=== PATIENT | female | born 1950 | race Caucasian/White ===

== ENCOUNTER → 2017-01-02 | Outpatient (CLI) | payer OTHER ==
[~2017-01-02] MED LIST: ASCA500 PO; ASPEC81 PO; CALC1TAB9 PO; CARV12.5 PO; CHOL20007 PO; CYAN500T13 PO; ESCI1TAB10 PO; FRRS300 PO; LORA-741 PO; MULTTAB58 PO; PANT1TAB48 PO; TRIA75TA53 PO
--- NOTE | 2017-01-02 15:41 | MAMMOGRAPHY REPORT ---
BILATERAL DIGITAL SCREENING MAMMOGRAM WITH CAD: 01/02/2017 TECHNIQUE: Current study was also evaluated with a Computer Aided Detection (CAD) system. Bilatera l CC and MLO views were obtained. COMPARISON: Comparison is made to exams dated: 01/01/2016 mammogram, 12/29/2014 mammogram, 12/21/2013 mammogram, 11/06/2010 mammogram - [facility], 02/09/2009, and 11/27/2006. BREAST COMPOSITION: There are scattered areas of fibroglandular density in both breasts. FINDINGS: No suspicious masses, calcifications, or areas of architectural distortion are noted in e ither breast. There has been no significant interval change compared to prior exams. Bilateral scat tered benign-appearing calcifications are not significantly changed. Bilateral asymmetries are stab le. IMPRESSION: ACR BI-RADS CATEGORY 2: BENIGN There is no mammographic evidence of malignancy. A 1 year screening mammogram is recommended. The p atient will receive written notification of the results. Approximately 10% of breast cancers are not detected with mammography. A negative mammographic repor t should not delay biopsy if a clinically suggestive mass is present. Aline Blandon M.D. ah/:01/02/2017 15:19:36 Parachute Harness Rigger: Komal DO(Ashlie)(M), [facility] letter sent: Normal 1/2 BI-RADS Code: ACR BI-RADS Category 2: Benign
== END | disposition home or self-care (01) ==
LOC: C.MAMM 09:57
PROVIDERS: ATTEND Internal Medicine
DX: Z12.31 Encounter for screening mammogram for malignant neoplasm of breast (principal)

== ENCOUNTER → 2017-11-27 | Day surgery (SDC) | payer OTHER ==
[2017-11-26 08:38] VITALS: BMI 45.0
[~2017-11-27] VITALS: Ht 172.7 cm; Wt 134.1 kg
[~2017-11-27] MED LIST changes: +ASPCH81X PO; -ASPEC81 PO; -CHOL20007 PO; +FENTANYL CITRATE INJ 50 MCG/1 ML 2 ML VIAL ONE; -FRRS300 PO; +LIDOCAINE HCL 2% 2 ML VIAL (20MG/ML) ONE; +MAGN400T6 PO; +PANT1TAB3 PO; -PANT1TAB48 PO; +PROPOFOL IV EMULSION 10 MG/ML 20 ML VIAL IV ONE; +SODIUM CHLORIDE 0.9% 500ML 500 ML IV ONE
[2017-11-27 09:29] VITALS: Ht 172.7 cm; Wt 134.1 kg
--- NOTE | 2017-11-27 10:00 | Endo History and Physical ---
History & Physical Date of Service: Nov 27, 2017. Chief Complaint: GERD Referring Physician: DR. PRICE History of Present Illness patient with heartburn symptoms Past Surgical History Hx Cardiac Surgery: Yes (HEART CATH, NO STENT) Hx Internal Defibrillator: No Hx Pacemaker: No Hx Abdominal Surgery: Yes (GASTRIC BYPASS, HERNIA REPAIR X6, OVARIAN CYST REMOVAL, COLON RESECTION) Hx of Implantable Prosthesis: No Hx Post-Op Nausea and Vomiting: No Hx Cancer Surgery: No Hx Thoracic Surgery: No Hx Orthopedic: Yes (L/R TKA, RT TRIGGER FINGER) Hx Urinary Tract Surgery: No Family History None Social History Smoking Status: Never Smoker Hx Substance Use: No Hx Alcohol Use: No Allergies Coded Allergies: RANDA Inhibitors (Verified Adverse Reaction, Mild, COUGH ONLY, 11/27/17) Adhesives (Verified Adverse Reaction, Mild, ERYTHEMA, 11/27/17) Codeine (Verified Adverse Reaction, Mild, INCREASED SEDATION, 11/27/17) Current Medications Reported Home Medications Medications Dose Route/Sig Max Daily Dose Days Date Category Mag-Ox (Magnesium Oxide) 400 Mg Tab 400 Mg PO Q2D 11/26/17 Reported Aspirin Chewable (Aspirin) 81 Mg Chew 81 Mg PO HS 11/26/17 Reported Vitamin C (Ascorbic Acid) 500 Mg Tab 1 Tab PO QAM 07/25/16 Reported Citracal + D3 Maximum (Calcium Citrate-Vitamin D) 1 Tab Tab 2 Tabs PO BID 04/07/15 Reported Lexapro (Escitalopram Oxalate) 20 Mg Tab 20 Mg PO QAM 04/07/15 Reported Protonix (Pantoprazole) 40 Mg Tab 40 Mg PO BID 04/24/13 Reported Coreg (Carvedilol) 12.5 Mg Tab 12.5 Mg PO BID 04/07/12 Reported Ativan (Lorazepam) 0.5 Mg Tab 0.5 Mg PO TID PRN 03/06/12 Reported Multivitamin (Multiple Vitamin) 1 Tab Tab 1 Tab PO QAM 03/06/12 Reported Vitamin B12 500MCG (Cyanocobalamin) 500 Mcg Tab 500 Mcg PO QAM 03/06/12 Reported Maxzide 75MG/50MG (Triamterene/HCTZ) Tab 1 Tab PO QAM 03/06/12 Reported Vital Signs Weight (Kilograms): 134.09 Height (Feet): 5 Height (Inches): 8 Date Time Temp Pulse Resp B/P (MAP) Pulse Ox O2 Delivery O2 Flow Rate FiO2 11/27/17 09:42 36.5 55 20 191/70 (110) 99 Room Air Physical Exam General Appearance: no apparent distress Respiratory/Chest: Auscultation: breath sounds normal Cardiovascular: Heart Auscultation: RRR Abdomen: Inspection & Palpation: soft Liver: non-tender Assessment and Plan stable for EGD
--- NOTE | 2017-11-27 10:23 | GI REPORT ---
Procedure Date: 11/27/2017 9:56 AM Procedure: Upper GI endoscopy Indications: Heartburn, Globus sensation Medicines: See the Anesthesia note for documentation of the administered medications Complications: No immediate complications. Estimated Blood Loss: Estimated blood loss: none. Procedure: Pre-Anesthesia Assessment: - Prior to the procedure, a History and Physical was performed, and patient medications, allergies and sensitivities were reviewed. The patient's tolerance of previous anesthesia was reviewed. - The risks and benefits of the procedure and the sedation options and risks were discussed with the patient. All questions were answered and informed consent was obtained. - Patient identification and proposed procedure were verified prior to the procedure by the physician and the nurse. The procedure was verified in the pre-procedure area. - Pre-procedure physical examination revealed no contraindications to sedation. - After reviewing the risks and benefits, the patient was deemed in satisfactory condition to undergo the procedure. After obtaining informed consent, the endoscope was passed under direct vision. Throughout the procedure, the patient's blood pressure, pulse, and oxygen saturations were monitored continuously. The scope was introduced through the mouth, and advanced to the efferent jejunal loop. The upper GI endoscopy was accomplished without difficulty. The patient tolerated the procedure well. Findings: The esophagus was normal. Evidence of a gastric bypass was found. A gastric pouch with a normal size was found. The staple line appeared intact. The gastrojejunal anastomosis was characterized by healthy appearing mucosa. The jejunojejunal anastomosis was characterized by healthy appearing mucosa. The examined jejunum was normal. Impression: - Normal esophagus. - No esophagitis or strictures. - Gastric bypass with a normal-sized pouch and intact staple line. Gastrojejunal anastomosis characterized by healthy appearing mucosa. - Normal examined jejunum. - No specimens collected. Recommendation: - Discharge patient to home. Scott Pryor M.D. Scott Pryor MD 11/27/2017 10:23:18 AM This report has been signed electronically. Note Initiated On: 11/27/2017 9:56 AM I attest to the content of the Intraoperative Record and orders documented therein, exceptions below
--- NOTE | 2017-11-27 10:23 | Discharge Instructions ---
Endoscopy Patient Instructions Date / Procedure(s) Performed Nov 27, 2017. EGD Allergy Information Coded Allergies: RANDA Inhibitors (Verified Adverse Reaction, Mild, COUGH ONLY, 11/27/17) Adhesives (Verified Adverse Reaction, Mild, ERYTHEMA, 11/27/17) Codeine (Verified Adverse Reaction, Mild, INCREASED SEDATION, 11/27/17) Discharge Date / Findings Nov 27, 2017. Normal post gastric bypass anatomy. No esophageal strictures. Provider Instructions Activity Restrictions - No exercising or heavy lifting for 24 hours. - Do not drink alcohol the day of the procedure. - Do not drive a car or operate machinery until the day after the procedure. - Do not make any important decisions or sign important papers in 24 hours after the procedure. Following Day: - Return to full activity which may include returning to work/school. Diet Start your diet with liquids and light foods (jello, soup, juice, toast). Then eat your usual diet if not nauseated. Treatment For Common After Affects For mild abdominal pain, bloating, or excessive gas: - Rest - Eat lightly - Lie on right side Follow-Up Information Follow-up with DR. PRICE as scheduled Anesthesia Information What You Should Know You have had a procedure that required some medicine to reduce anxiety and discomfort. This treatment is called moderate sedation. After receiving the treatment, you may be sleepy, but you will be able to breathe on your own. The effects of the treatment may last for several hours. Follow these instructions along with Activity/Diet recommendations noted above: * Do NOT do anything where dizziness or clumsiness would be dangerous. * Rest quietly at home today, then you can be up and about tomorrow. * Have a responsible person stay with you the rest of today. * You may have had an I.V. today. If so, you may take the dressing off later today. Recommendations Call your doctor if: * Trouble breathing * Continuous vomiting for more than 24 hours * Temperature above 101 degrees * Severe abdominal pain or bloating * Pain not relieved by pain medicine ordered * There is increased drainage or redness from any incision * A large amount of rectal bleeding greater than 2-3 tablespoons. (If you had a polyp/s removed or have hemorrhoids, a small amount of blood - from the rectum is to be expected.) * You have any unanswered questions or concerns. IN THE EVENT OF A SERIOUS EMERGENCY, GO TO THE NEAREST EMERGENCY ROOM Your discharge instructions were prepared by provider Scott Pryor. Patient Instructions Signature Page Mirta Guaman Patient (or Guardian) Signature/Date: I have read and understand the instructions given to me by my caregivers. Caregiver/RN/Doctor Signature/Date: The above-named patient and/or guardian has received patient instructions on this date. + Original Patient Signature Page (only) stays with chart. Please make copy for patient.
--- NOTE | 2017-11-27 10:26 | Anesthesiology Progress Note ---
Anesthesia Post Op Note Date & Time Nov 27, 2017 at 10:26 Vital Signs Vital Signs Past 12 Hours Date Time Temp Pulse Resp B/P (MAP) Pulse Ox O2 Delivery O2 Flow Rate FiO2 11/27/17 09:42 36.5 55 20 191/70 (110) 99 Room Air Notes Mental Status: alert / awake / arousable, participated in evaluation Pt Amnestic to Procedure: Yes Nausea / Vomiting: adequately controlled Pain: adequately controlled Airway Patency, RR, SpO2: stable & adequate BP & HR: stable & adequate Hydration State: stable & adequate Anesthetic Complications: no major complications apparent
[2017-11-27 10:52] VITALS: BP 159/66; PULSE 55; O2SAT 98
== END | disposition home or self-care (01) ==
LOC: C.GI 09:15
PROVIDERS: ATTEND Internal Medicine Gastroenterology
DX: R12 Heartburn (principal); K21.9 Gastro-esophageal reflux disease without esophagitis; Z98.84 Bariatric surgery status; Z96.659 Presence of unspecified artificial knee joint; Z88.5 Allergy status to narcotic agent; Z88.8 Allergy status to other drugs, medicaments and biological substances; Z79.82 Long term (current) use of aspirin; E66.9 Obesity, unspecified; F32.9 Major depressive disorder, single episode, unspecified; F41.9 Anxiety disorder, unspecified

== ENCOUNTER → 2018-01-06 | Outpatient (CLI) | payer OTHER ==
[~2018-01-06] MED LIST changes: -FENTANYL CITRATE INJ 50 MCG/1 ML 2 ML VIAL ONE; -LIDOCAINE HCL 2% 2 ML VIAL (20MG/ML) ONE; -PROPOFOL IV EMULSION 10 MG/ML 20 ML VIAL IV ONE; -SODIUM CHLORIDE 0.9% 500ML 500 ML IV ONE
--- NOTE | 2018-01-07 07:55 | MAMMOGRAPHY REPORT ---
BILATERAL DIGITAL SCREENING MAMMOGRAM TOMOSYNTHESIS WITH CAD: 01/06/2018 CLINICAL HISTORY: Routine screening. Patient has no complaints. TECHNIQUE: Breast tomosynthesis in addition to standard 2D mammography was performed. Current study was also evaluated with a Computer Aided Detection (CAD) system. COMPARISON: Comparison is made to exams dated: 01/02/2017 mammogram, 01/01/2016 mammogram, 01/19/2015 u ltrasound, 01/19/2015 mammogram, 12/29/2014 mammogram, and 12/21/2013 mammogram - [facility]. BREAST COMPOSITION: There are scattered areas of fibroglandular density in both breasts. FINDINGS: There are scattered benign-appearing calcifications in the breasts, similar comparing to pr ior mammograms. No suspicious mass, architectural distortion or cluster of microcalcifications is se en. IMPRESSION: ACR BI-RADS CATEGORY 1: NEGATIVE There is no mammographic evidence of malignancy. A 1 year screening mammogram is recommended. The pa tient will receive written notification of the results. Approximately 10% of breast cancers are not detected with mammography. A negative mammographic report should not delay biopsy if a clinically suggestive mass is present. Giuliana Grider M.D. ay/:01/06/2018 17:43:19 Rabbit Dresser: Komal Steele, [facility] letter sent: Normal 1/2 BI-RADS Code: ACR BI-RADS Category 1: Negative
== END | disposition home or self-care (01) ==
LOC: C.MAMM 10:02
PROVIDERS: ATTEND Internal Medicine
DX: Z12.31 Encounter for screening mammogram for malignant neoplasm of breast (principal)